=== PATIENT | male | born 2000 | race Hispanic/Latino ===

== ENCOUNTER 2024-06-17 20:10 | Emergency (ER) | payer BC ==
[~2024-06-17] VITALS: Ht 185.4 cm; Wt 113.4 kg
[2024-06-17 21:03] VITALS: PULSE 64; RESP 18; TEMP 98.9
[2024-06-17] MEDS ORDERED: TRAMADOL HCL 50 MG TAB ONE (21:18)
[2024-06-17] MEDS: TRAMADOL HCL 50 MG TAB PO ONE (21:41)
[2024-06-17 23:37] VITALS: BP 146/78; O2SAT 99
== END 2024-06-17 23:38 | disposition home or self-care (01) ==
LOC: ER 20:14
DX: M25.561 Pain in right knee (principal); Y93.68 Activity, volleyball (beach) (court); Y92.318 Other athletic court as the place of occurrence of the external cause
CPT/HCPCS: 99283